=== PATIENT | male | born 1985 | race Caucasian/White ===

== ENCOUNTER 2019-02-23 04:46 | Emergency (ER) | payer SELFPAY, MEDICAID ==
[2019-02-23] MEDS: METOCLOPRAMIDE 10 MG TAB PO (07:49)
[2019-02-23] MEDS: KETOROLAC 15 MG INJ IM (07:49)
== END 2019-02-23 08:09 | disposition home or self-care (01) ==
LOC: E/R 04:46
DX: S09.90XA Unspecified injury of head, initial encounter (principal); F19.10 Other psychoactive substance abuse, uncomplicated; R51 Headache; V67.5XXA Driver of heavy transport vehicle injured in collision with fixed or stationary object in traffic accident, initial encounter
CPT/HCPCS: 70450; 99284-25